=== PATIENT | male | born 1975 | race Caucasian/White ===

== ENCOUNTER 2023-07-20 08:01 | Emergency (ER) | payer OTHER, SELFPAY ==
--- NOTE | 2023-07-20 08:23 | ED.MUSCINJ ---
HPI-Injury
General
Chief Complaint: Fall
Source: patient
Exam Limitations: none
Time Seen by Provider: 07/20/23 08:13
Nursing documentation reviewed up to this point in time: agreed with
Travel History
Have you had any contact with someone who has COVID-19?: No
Do you have any symptoms of coronavirus? Fever > 100 degrees, chills, cough, shortness of breath, sore throat, loss of taste or smell, muscle aches, or headache?: No
History of Present Illness-Injury
Is this injury a work related problem?: No
Is pt an associate of [facility]?: No
Initial Injury comments:
48-year-old male left ankle injury inverted on some black ice just prior to arrival swelling difficulty ambulating, no head strike no blood thinners, no preceding chest pain or shortness of breath
Past History
Past History
ED Past Medical History: Hypercholesterolemia, Hypothyroidism, Psychiatric (OCD) and Other (Pedal edema, Ulcers)
ED Past Surgical History: Orthopedic
Social History
Tobacco: Smoker ( and Vaps)
Alcohol: None
Drug: None
Personal:
Living: with family
Employment: Employed
Family History
Family History: Other
Review of Systems
Review of Systems
All Other Systems: Not applicable
EENT: Reports no symptoms
Cardiac: Denies syncope
ABD/GI: Reports no symptoms
Musculoskeletal: Reports joint pain
Phy Exam
Physical Exam
Physical Exam:
Physical Exam
General: no apparent distress, not acutely ill
Neck: No tongue bite no overt signs of head or neck
Heart: Regular
Lungs: no acute respiratory distress.
Neuro: alert and oriented. no focal neurological deficits
Skin: no rash
Psychiatric: well kept. interactive and cooperative
Extremities: Swelling to left lateral malleolus, up into the distal third of the fibula, fibular head nontender mild medial malleolus swelling, no pain with range of motion of the hips bilaterally
Injury Course
Orders/Labs/Results
Orders:
Orders
07/20/23 08:16
Ibuprofen [Motrin] 600 mg PO NOW STA
Ankle, left 3 view CR [CR Ankle - Left Min 3 Views ] Urgent
Comment:
Reason For Exam: fall
07/20/23 08:17
Air Splint Left-Treatment ONCE
Crutches-Treatment ONCE
MDM/Problems Addressed
Differential Diagnosis Includes:
Fracture strain strain dislocation
MDM/Problems Addressed:
Ankle injury
*Radiology
Radiology exam reviewed: preliminary read by ED provider
*Pulse Oximetry
Patient hypoxic: no
*Critical Care Note
Total Time (30-74mins, 75-104mins- exclusive of procedures): Not Applicable
Update Note
Update Note:
Update x-ray noted, will splint crutches patient does not want oxycodone he states it interacts with his medications, has seen [facility] orthopedics before they are on-call for the ER will have him follow-up in the office
ED Attending Note
-
Portions of this chart may have been created with voice recognition software.� Occasional wrong word or��sound alike� substitutions may have occurred due to the inherent limitations of voice recognition software.
Discharge Plan
Departure
Patient Disposition: Home (Routine Discharge)
Date of Disposition: 07/20/23
Time of Disposition: 08:45
Patient with high blood pressure during this ER visit?: No
Condition: Good
Covid-19: Not Applicable
Discharge Problem:
Ankle fracture, left
Instructions: Ankle Fracture (DC), How to Use Crutches, Ibuprofen
Prescriptions:
No Action
bupropion HCl 150 MG tablet sustained-release 12 hr
150 mg PO DAILY
pantoprazole 40 MG tablet,delayed release (DR/EC)
40 mg PO DAILY
escitalopram oxalate 20 MG tablet
20 mg PO BID
ascorbic acid (vitamin C) [Vitamin C] 100 MG tablet
100 mg PO DAILY
levothyroxine [Levoxyl] 200 MCG tablet
200 mcg PO DAILY
armodafinil [Nuvigil] 250 MG tablet
250 mg PO DAILY
lamotrigine [Lamictal XR] 300 MG tablet extended release 24hr
300 mg PO DAILY
resveratrol-quercetin 1 EACH tablet
1 ea PO DAILY
magnesium oxide 400 MG capsule
400 mg PO DAILY
wekcmths-lvg-cmzvd-vit K-lycop [Men's Multivitamin] 1 EACH tablet
1 ea PO DAILY
Cytomel:
10 mcg PO DAILY
Depo-Testosterone:
1 ml SC WEEKLY
Dulera 200 mcg/5 mcg Inhaler
2 puff inhalation PRN (Reason: SOB)
Garlic-Extract
1,000 mg PO DAILY
Geodon:
40 mg PO BID
Iron
65 mg PO DAILY
Methyl-Folate
1,000 mg PO DAILY
Nacetyl-Cysteine
100 mg PO BID
[place] 3-6-9 Complex Softgel
1 tab PO DAILY
Turmeric Curcumin
1,500 mg PO DAILY
Vitamin B12:
3,000 mcg PO DAILY
Vitamin D3/Vitamin K2 (Mk4)
6,000 units PO DAILY
Xanax:
2 mg PO TID
Zinc Nils
53 mg PO DAILY
polyethylene glycol 3350 17 GRAMS powder in packet
17 grams PO DAILYPRN PRN (Reason: constipation) Qty: 1 0RF
acetaminophen [Tylenol Extra Strength] 500 MG tablet
1,000 mg PO Q6HPRN PRN (Reason: mild pain) Qty: 1 0RF
oxycodone 5 MG tablet
5 mg PO Q4HPRN PRN (Reason: breakthrough/severe pain) Qty: 20 0RF
Referrals:
Pito Betancourt DO [Family Provider] -
Tristan Tong MD [Active] - Next open appointment
Activity Restrictions/Additional Instructions:
Ice, use splint and crutches,
Follow-up with [facility] orthopedics
Interventions
Interventions:
*Risk Screen - Suicide Last Done: 07/20/23 08:07
*General Assessment Last Done: 07/20/23 08:07
*Neglect/Abuse Screening Last Done: 07/20/23 08:07
[2023-07-20] MEDS: MOTRIN 600 MG PO (08:52)
== END 2023-07-20 09:48 | disposition home or self-care (01) ==
LOC: EMR 08:01
PROVIDERS: EMERGENCY PHYSICIAN Emergency Medicine; FAMILY PHYSICIAN Family Medicine
DX: S82.62XA Displaced fracture of lateral malleolus of left fibula, initial encounter for closed fracture (principal); W00.0XXA Fall on same level due to ice and snow, initial encounter; E03.9 Hypothyroidism, unspecified; E78.00 Pure hypercholesterolemia, unspecified; F42.9 Obsessive-compulsive disorder, unspecified; K21.9 Gastro-esophageal reflux disease without esophagitis; M19.90 Unspecified osteoarthritis, unspecified site; F41.9 Anxiety disorder, unspecified; F32.A Depression, unspecified; F31.9 Bipolar disorder, unspecified; B02.9 Zoster without complications; F43.10 Post-traumatic stress disorder, unspecified; F17.290 Nicotine dependence, other tobacco product, uncomplicated
CPT/HCPCS: 99283; 29515; 73610

== ENCOUNTER → 2023-07-27 06:22 | Day surgery (SDC) | payer OTHER, SELFPAY ==
[2023-07-27] VITALS (10 sets, daily range): BP systolic 115–148; BP diastolic 60–93; BMI 35.9
[2023-07-27 14:40] LABS: Glucose - Point of Care 92 mg/dl (70-99)
[2023-07-27] MEDS: NORMOSOL-R 1000 IV (14:44)
[2023-07-27] MEDS: CELEBREX 200 MG PO (14:45)
[2023-07-27] MEDS: TYLENOL 1000 MG PO (14:45)
[2023-07-27 16:34] LABS: Glucose - Point of Care 84 mg/dl (70-99)
[2023-07-27] MEDS: DILAUDID 0.25 MG IV (20:06)
[2023-07-27 20:25] LABS: Glucose - Point of Care 97 mg/dl (70-99)
== END ==
LOC: SDS 06:22
PROVIDERS: ATTENDING PHYSICIAN Student in an Organized Health Care Education/Training Program
DX: S82.852A Displaced trimalleolar fracture of left lower leg, initial encounter for closed fracture (principal); W00.0XXA Fall on same level due to ice and snow, initial encounter
CPT/HCPCS: 27822; 27829; 73600; 76000; 82962; C1713

== ENCOUNTER → 2023-09-12 10:39 | Outpatient (REF) | payer OTHER, SELFPAY | LOC: RAD 10:39 | PROVIDERS: ATTENDING PHYSICIAN Physician Assistant; FAMILY PHYSICIAN Family Medicine | DX: M81.0 Age-related osteoporosis without current pathological fracture (principal); Z13.820 Encounter for screening for osteoporosis | CPT/HCPCS: 77080 ==

== ENCOUNTER 2024-01-11 06:39 | Day surgery (SDC) | payer OTHER, SELFPAY ==
[2024-01-11] VITALS (7 sets, daily range): BP systolic 116–160; BP diastolic 71–95
[2024-01-11] MEDS: CELEBREX 200 MG PO (14:38)
[2024-01-11] MEDS: TYLENOL 1000 MG PO (14:39)
[2024-01-11 14:50] LABS: Glucose - Point of Care 93 mg/dl (70-99)
[2024-01-11] MEDS: NORMOSOL-R 1000 IV (15:01)
[2024-01-11 18:32] LABS: Glucose - Point of Care 93 mg/dl (70-99)
[2024-01-11] MEDS: ROXICODONE 5 MG PO (19:05)
== END 2024-01-11 19:23 | disposition home or self-care (01) ==
LOC: SDS 06:39
PROVIDERS: ATTENDING PHYSICIAN Orthopaedic Surgery Hand Surgery
DX: M18.11 Unilateral primary osteoarthritis of first carpometacarpal joint, right hand (principal); Z98.890 Other specified postprocedural states
CPT/HCPCS: 25447; 82962; C1713; C1776

== ENCOUNTER 2024-04-17 06:21 | Day surgery (SDC) | payer OTHER, SELFPAY ==
[2024-04-17 10:05] VITALS: BMI 37.5
[2024-04-17 10:07] VITALS: BP 132/78; BMI 37.5
[2024-04-17 10:19] LABS: Glucose - Point of Care 99 mg/dl (70-99)
[2024-04-17] MEDS: Pyridium 200 MG PO (10:38)
[2024-04-17 12:00] VITALS: BP 112/71
[2024-04-17 12:15] VITALS: BP 122/81
[2024-04-17 12:30] VITALS: BP 129/79
== END 2024-04-17 12:40 | disposition home or self-care (01) ==
LOC: SDS 06:21
PROVIDERS: ATTENDING PHYSICIAN Specialist
DX: N32.81 Overactive bladder (principal); N39.44 Nocturnal enuresis
CPT/HCPCS: 52000; 82962

== ENCOUNTER 2024-05-03 11:25 | Emergency (ER) | payer OTHER, SELFPAY ==
[2024-05-03 11:31] VITALS: BP 138/77
[2024-05-03 11:52] VITALS: BP 135/80
[2024-05-03 11:53] VITALS: BMI 38.0
[2024-05-03 12:00] VITALS: BP 141/112
--- NOTE | 2024-05-03 12:19 | ED.GENMED ---
History of Present Illness
General
Chief Complaint: Chest Pain
Source: patient
Exam Limitations: none
Time Seen by Provider: 05/03/24 11:48
Nursing documentation reviewed up to this point in time: agreed with
History of Present Illness
History of Present Illness:
48-year-old male presenting to the emergency department with left-sided chest pain rating to left arm close he does have a history of severe acid reflux which has given his similar symptoms in the past. This started yesterday after a meal. He does
take pantoprazole daily. Denies any shortness of breath nausea vomiting numbness weakness
Past History
Past History
ED Past Medical History: Hypercholesterolemia, Hypothyroidism, Psychiatric (OCD) and Other (Pedal edema, Ulcers)
ED Past Surgical History: Orthopedic
Social History
Tobacco: Smoker ( and Vaps)
Alcohol: None
Drug: None
Personal:
Living: with family
Employment: Employed
Family History
Family History: Other
Review of Systems
Review of Systems
Allergies reviewed?: Yes
All Other Systems: ROS reviewed and negative except as documented in HPI and ROS
Phy Exam
Physical Exam
Physical Exam:
GENERAL: Alert , in no apparent distress
EYE: pupils equal and reactive
NECK: Supple, no significant adenopathy.
ENT: o/p clr, mmm.
CARDIAC: Regular rate and rhythm .
LUNGS: Clear breath sounds bilaterally, no acute respiratory distress, no wheezes/rales/rhonchi
ABDOMEN: Soft, without focal tenderness, no r/g, no cvat
NEUROLOGICAL: Alert and oriented, no focal neuro deficits
SKIN: Warm and dry, skin intact.
MUSCULOSKELETAL: No edema, well perfused.
PSYCH: Normal and appropriate interaction.
Scores
Heart Score for Chest Pain Patients
STEMI patient?: No
History: Slightly or Non-Suspicious
ECG: Normal
Age: >45 - <65 years
Risk Factors: 1 or 2 Risk Factors
Troponin: </= Normal Limit
Heart Score for Chest Pain Patients: 2
Heart Score Risk: 2.5% MACE over next 6 weeks
Course
Orders/Labs/Results
Orders:
Orders
05/03/24 11:27
Electrocardiogram (*1) Urgent
Reason for Study: Chest Pain
EKG- Treatment ONCE
05/03/24 12:03
Complete Blood Count/With Diff Urgent
Comprehensive Metabolic Panel Urgent
Troponin I Urgent
05/03/24 12:05
Chest [CR Chest - 2 Views ] Urgent
Comment:
Reason For Exam: cp
05/03/24 12:09
Famotidine [Pepcid] 40 mg PO NOW STA
Mag Hydrox/Al Hydrox/Simeth [Maalox] 30 ml Phenobarb/Hyoscy/Atropine/Scop [] 10 ml PO NOW
05/03/24 12:30
Mag Hydrox/Al Hydrox/Simeth [Maalox] 30 ml .ROUTE .STK-MED ONE
Phenobarb/Hyoscy/Atropine/Scop [] 10 ml .ROUTE .STK-MED ONE
Abnormal Lab Results
05/03/24
12:03
MCV 95.8 H fL
(80.0-94.0)
MCH 31.9 H pg
(27.0-31.0)
Absolute Eos (auto) 0.8 H 10^3/uL
(0-0.7)
Lymphocytes % 17.2 L %
(20.5-51.1)
Eosinophils % 12.4 H %
(0-6)
BUN 25 H mg/dl
(9-20)
Glucose 103 H mg/dl
(70-99)
05/03/24 12:03
05/03/24 12:03
Vital Signs
Initial and Last Documented VS:
Initial Vital Signs
Temp Pulse Resp BP Pulse Ox
98.3 F 72 20 138/77 100
05/03/24 11:31 05/03/24 11:31 05/03/24 11:31 05/03/24 11:31 05/03/24 11:31
Last Documented Vital Signs
Temp Pulse Resp BP Pulse Ox
98.3 F 57 19 141/112 95
05/03/24 11:31 05/03/24 12:45 05/03/24 12:45 05/03/24 12:00 05/03/24 12:45
MDM/Problems Addressed
MDM/Problems Addressed:
48-year-old male presenting to the emergency department today with concerns of left-sided chest pain starting yesterday rating to left arm described as achy made worse with movements also worse with eating certain foods. Does of a history of severe
acid reflux since a child. Does take pantoprazole daily. Upon arrival vital signs are normal. Patient with normal heart and lung examination. Labs unremarkable troponin negative EKG normal. Chest x-ray without acute abnormalities. Patient does
not appear to have any life-threatening cause likely. Symptoms resolved after receiving famotidine as well as Maalox. Symptoms most likely GI related advised for very close outpatient follow-up. Return precautions were given.
*Critical Care Note
Total Time (30-74mins, 75-104mins- exclusive of procedures): Not Applicable
ED Attending Note
-
Portions of this chart may have been created with voice recognition software.� Occasional wrong word or��sound alike� substitutions may have occurred due to the inherent limitations of voice recognition software.
Discharge Plan
Departure
Patient Disposition: Home (Routine Discharge)
Date of Disposition: 05/03/24
Time of Disposition: 14:23
Patient with high blood pressure during this ER visit?: No
Condition: Good
Covid-19: Not Applicable
Discharge Problem:
Chest pain
Instructions: Chest Pain PCP Follow Up
Prescriptions:
New
famotidine 20 mg tablet
20 mg PO BID Qty: 14 0RF
No Action
pantoprazole 40 MG tablet,delayed release (DR/EC)
40 mg PO DAILY
levothyroxine [Levoxyl] 200 MCG tablet
200 mcg PO [id number]
Depo-Testosterone:
2 ml SC Q2W
liothyronine [Cytomel] 25 mcg Tablet
25 mcg PO MOWE
ziprasidone HCl [Geodon] 40 mg Capsule
40 mg PO BID
diazepam [Valium] 10 mg Tablet
10 mg PO QID
escitalopram oxalate [Lexapro] 20 mg Tablet
20 mg PO BID
bupropion HCl [Wellbutrin XL] 150 mg Tablet Extended Release 24 Hr
150 mg PO DAILY
armodafinil [Nuvigil] 250 mg Tablet
250 mg PO DAILY
lamotrigine [Lamictal XR] 300 mg Tablet Extended Release 24hr
300 mg PO DAILY
Xeljanz XR 11 mg Tablet Extended Release 24 Hr
11 mg PO DAILY
zolpidem [Ambien CR] 12.5 mg Tablet,Ext Release Multiphase
12.5 mg PO HS
aripiprazole [Abilify] 2 mg Tablet
2 mg PO DAILY
metformin 500 mg Tablet
500 mg PO DAILY
topiramate [Topamax] 100 mg tablet
100 mg PO 5/D
Referrals:
Pito Betancourt DO [Family Provider] -
Activity Restrictions/Additional Instructions:
You came to the emergency department today with concerns of chest pain. Here you have a reassuring assessment. This may be from your esophagus. Please take the prescribed medication as needed. Please follow closely as an outpatient for ongoing
monitoring and assessment as needed. Return to the emergency department for any worsening, new or concerning symptoms.
Interventions
Interventions:
*Risk Screen - Suicide Last Done: 05/03/24 11:53
*General Assessment Last Done: 05/03/24 11:53
*Neglect/Abuse Screening Last Done: 05/03/24 11:53
ED- Fall Risk Assessment Last Done: 05/03/24 11:53
*ED COVID-19 Vaccine History Last Done: 05/03/24 11:53
ED- Cardiac Assessment Last Done: 05/03/24 11:53
Discharge Date and Time
Print Language: ALBANIAN
[2024-05-03 12:26] LABS: % Basophils 0.6 % (0-2); % Eosinophils 12.4 % (0-6); % Immature Granulocytes 0.1 % (0-0.5); % Lymphocytes 17.2 % (20.5-51.1); % Monocytes 8.2 % (1.7-9.3); % Neutrophils 61.5 % (42.2-75.2); Absolute Eosinophils 0.8 10^3/uL (0-0.7); Absolute Lymphocytes 1.2 10^3/uL (1.2-3.4); Absolute Monocytes 0.6 10^3/uL (0.1-0.6); Absolute Neutrophils 4.2 10^3/uL (1.4-6.5); Hematocrit 45.4 % (39.0-52.0); Hemoglobin 15.1 g/dL (13.0-18.0); Mean Corp Hgb Conc. 33.3 g/dL (33.0-37.0); Mean Corpuscular Hgb 31.9 pg (27.0-31.0); Mean Corpuscular Volume 95.8 fL (80.0-94.0); Mean Platelet Volume 9.6 fL (7.4-10.4); Nucleated Red Blood Cells % 0 % (-); Platelet Count 178 10^3/uL (130-400); Red Blood Cell Count 4.74 10^6/uL (4.70-6.10); Red Cell Dist. Width 13.5 % (11.5-14.5); White Blood Cell Count 6.8 10^3/uL (4.8-10.8)
[2024-05-03] MEDS: MAALOX 40 PO (12:32)
[2024-05-03] MEDS: PEPCID 40 MG PO (12:32)
[2024-05-03 12:37] LABS: ALT (SGPT) 27 U/L (0-50); AST (SGOT) 24 U/L (17-59); Albumin 4.8 g/dl (3.5-5.0); Alkaline Phosphatase 65 U/L (38-126); Blood Urea Nitrogen 25 mg/dl (9-20); Calcium 9.4 mg/dl (8.4-10.2); Carbon Dioxide 25 mmol/L (22-30); Chloride 106 mmol/L (98-107); Estimated Creatinine Clearance 97 ml/min; Glucose 103 mg/dl (70-99); Potassium 4.4 mmol/L (3.5-5.1); Sodium 142 mmol/L (135-145); Total Bilirubin 0.2 mg/dl (0.2-1.3); Total Protein 7.4 g/dl (6.3-8.2); eGFR > 60.00
[2024-05-03 13:00] VITALS: BP 115/73
[2024-05-03 13:01] LABS: Troponin I < 0.012 ng/ml
[2024-05-03 14:34] VITALS: BP 138/98
== END 2024-05-03 14:34 | disposition home or self-care (01) ==
LOC: EMR 11:25
PROVIDERS: EMERGENCY PHYSICIAN Emergency Medicine; FAMILY PHYSICIAN Family Medicine
DX: R07.89 Other chest pain (principal); F17.290 Nicotine dependence, other tobacco product, uncomplicated
CPT/HCPCS: 99285; 71046; 80053; 84484; 85025; 93005